=== PATIENT | female | born 1990 | race Caucasian/White ===

== ENCOUNTER 2017-01-12 20:47 | Outpatient (CLI) | payer OTHER ==
[~2017-01-12] VITALS: Ht 157.5 cm; Wt 85.0 kg
[2017-01-12 20:52] VITALS: BP 117/59
--- NOTE | 2017-01-12 22:10 | HPE ---
DATE OF ADMISSION: 01/12/2017 HISTORY: This lady is a 26-year-old 5, para 2, abortio 2, last menstrual period (LMP) 05/16/2016, estimated date of confinement (EDC) 02/20/2017, at 34 weeks and two days, who comes in with history of Darryl-Vilchis over the last 24 hours which as been irritating for her and she came for evaluation. PAST HISTORY: 1. In 2008, at 40-week spontaneous vaginal delivery female 7 pounds 11 ounces. 2. In 2011, a 40-week spontaneous vaginal delivery female 8 pounds. 3. She has had two spontaneous abortions, 2013 and 2015. Risk factor is she has anemia. Her labs are O positive, HIV negative, hepatitis negative, RPR negative. Varicella immune. Pap normal. Urine negative. Gonorrhea, chlamydia negative, 105 glucose. CF was declined. PHYSICAL EXAMINATION: On examination she does not appear in any acute distress. Has a category one strip. Accelerations 15 x 15. Contractions have spaced out and they have of resting tone which is normal and probably mild in intensity. PELVIC EXAMINATION: Cervix is posterior, closed. No vaginal bleeding or loss, high, not dilated. Presenting part is about -4. Urine is 1.000, pH is seven negative, negative, negative. Blood pressure is 117/59, respirations are 18, pulse is 90 and temperature 98.4. ASSESSMENT: In summary, we have a 34-weeker with benign [place]-Vilchis contractions. She was given precautions. She has to keep her appointment with Jailene Rae, and she was welcomed back if she has ruptured membranes, bleeding, contractions 5-7 minutes apart, lasting 20-40 seconds.
== END 2017-01-12 21:30 | disposition home or self-care (01) ==
LOC: M LDO 20:47
PROVIDERS: ATTEND Obstetrics & Gynecology
DX: O47.03 False labor before 37 completed weeks of gestation, third trimester (principal); Z3A.34 34 weeks gestation of pregnancy; O99.013 Anemia complicating pregnancy, third trimester; D64.9 Anemia, unspecified; O09.293 Supervision of pregnancy with other poor reproductive or obstetric history, third trimester

== ENCOUNTER → 2017-01-12 | Outpatient (CLI) | payer OTHER | END | disposition home or self-care (01) | LOC: CANPRECLI → M LDO 20:44 | PROVIDERS: ATTEND Obstetrics & Gynecology | DX: O47.03 False labor before 37 completed weeks of gestation, third trimester (principal); O99.013 Anemia complicating pregnancy, third trimester; D64.9 Anemia, unspecified; Z3A.34 34 weeks gestation of pregnancy; O09.293 Supervision of pregnancy with other poor reproductive or obstetric history, third trimester ==

== ENCOUNTER 2017-01-20 15:54 | Outpatient (CLI) | payer OTHER ==
[~2017-01-20] VITALS: Ht 157.5 cm; Wt 82.0 kg
[2017-01-20 16:04] VITALS: BP 121/69
[2017-01-20 17:05] VITALS: BP 109/53
== END 2017-01-20 17:57 | disposition home or self-care (01) ==
LOC: M LDO 15:54
PROVIDERS: ATTEND Obstetrics & Gynecology
DX: O36.8130 Decreased fetal movements, third trimester, not applicable or unspecified (principal); Z3A.35 35 weeks gestation of pregnancy

== ENCOUNTER 2017-02-22 10:17 | Outpatient (CLI) | payer OTHER ==
[~2017-02-22] VITALS: Ht 157.5 cm; Wt 82.0 kg
[2017-02-22 10:37] VITALS: BP 110/60
[2017-02-22] MEDS ORDERED: PEPSID (10:40)
== END 2017-02-22 11:28 | disposition home or self-care (01) ==
LOC: M LDO 10:17
PROVIDERS: ATTEND Student in an Organized Health Care Education/Training Program
DX: O47.1 False labor at or after 37 completed weeks of gestation (principal); Z3A.40 40 weeks gestation of pregnancy

== ENCOUNTER 2017-02-22 14:40 | Outpatient (CLI) | payer OTHER ==
[~2017-02-22] VITALS: Ht 157.5 cm; Wt 92.0 kg
[~2017-02-22 14:40] MED LIST: PEPSID
[2017-02-22 15:02] VITALS: BP 99/53
== END 2017-02-22 15:22 | disposition home or self-care (01) ==
LOC: M LDO 14:40
PROVIDERS: ATTEND Advanced Practice Midwife
DX: O47.1 False labor at or after 37 completed weeks of gestation (principal); Z3A.40 40 weeks gestation of pregnancy

== ENCOUNTER 2017-02-22 18:58 | Inpatient (IN) | payer OTHER ==
[~2017-02-22] VITALS: Ht 157.5 cm; Wt 86.0 kg
[2017-02-22] MEDS ORDERED: LACTATED RINGER'S 1000 ML IV STA (19:44)
[2017-02-22] MEDS ORDERED: LR 1,000 ML IV SCH (20:00)
[2017-02-22 20:26] LABS: MEAN CORPUSCULAR HEMOGLOBIN 29.1 pg (27.0-33.0); MEAN CORPUSCULAR HGB CONC 34.4 g/dl (32.0-36.5); MEAN CORPUSCULAR VOLUME 84.7 fl (80.0-96.0); WHITE BLOOD COUNT 20.5 K/mm3 (4.0-10.0)
[2017-02-22] MEDS ORDERED: FENTANYL 2MCG/ML ROPIVACAINE 0.2% IN 0.9% NACL 200ML IVBAG As Ordered ONE (20:50)
[2017-02-22] MEDS ORDERED: diphenhydrAMINE INJ 50MG/ML VIAL (J1200) IV PRN (22:08)
[2017-02-22] MEDS ORDERED: REFRIGERATOR IV KEYS XX PRN (22:08)
[2017-02-22] MEDS ORDERED: FENTANYL/ROPIVACAINE/NACL BAG 200 ML EPIDURAL SCH (22:08)
[2017-02-22] MEDS ORDERED: NALOXONE INJ 0.4 MG/1 ML VIAL (J2310) IV PRN (22:08)
[2017-02-22] MEDS ORDERED: EPIDURAL COMMENT XX SCH (22:08)
[2017-02-22] MEDS ORDERED: LACTATED RINGER'S 1000 ML IV PRN (22:08)
[2017-02-22] MEDS ORDERED: ONDANSETRON 4MG/2ML VIAL (J2405) IV PRN (22:08)
[2017-02-22] MEDS ORDERED: EPIDURAL/PCA KEYS XX PRN (22:08)
[2017-02-22] MEDS ORDERED: ePHEDrine SULFATE 25 MG/5 ML(5MG/ML) SYRINGE IV PRN (22:08)
[2017-02-22] MEDS ORDERED: OXYTOCIN 30 UNITS IN 0.9% NaCl 500ML IV BAG (J2590) As Ordered ONE (22:36)
[2017-02-23] MEDS ORDERED: OXYTOCIN DRIP 30 UNITS in APPROPRIATE DILUENT 1 EA IV SCH (03:36)
[2017-02-23] MEDS ORDERED: ANUSOL HC CREAM 30GM TOP PRN (03:45)
[2017-02-23] MEDS ORDERED: PROMETHAZINE 25 MG TAB PO PRN (03:45)
[2017-02-23] MEDS ORDERED: MEASLES,MUMPS,RUBELLA VACCINE INJ (MMR-II) (90707) SC SCH (03:45)
[2017-02-23] MEDS ORDERED: ACETAMINOPHEN 500 MG TAB PO PRN (03:45)
[2017-02-23] MEDS ORDERED: MOM 30ML SUSPENSION UDC PO PRN (03:45)
[2017-02-23] MEDS ORDERED: METHYLERGONOVINE MALEATE 0.2 MG TAB PO PRN (03:45)
[2017-02-23] MEDS ORDERED: LIDOCAINE 1% MDV INJ 50 ML VIAL INFIL ONE (03:45)
[2017-02-23] MEDS ORDERED: DIBUCAINE 1% OINTMENT 30GM TOP PRN (03:45)
[2017-02-23] MEDS ORDERED: DOCUSATE SODIUM 100 MG CAP PO PRN (03:45)
[2017-02-23] MEDS ORDERED: RHOGAM 300 MCG (1500 IU) INJ (J2790) IM SCH (03:45)
[2017-02-23] MEDS: IBUPROFEN 800 MG TAB PO PRN ×3 (04:35→22:18)
[2017-02-23 05:46] VITALS: BP 131/60
[2017-02-23] MEDS: PRENATAL VITAMINS CHEWABLE TABLET PO SCH (09:08)
[2017-02-23 18:30] VITALS: BP 131/62
[2017-02-24 05:35] VITALS: BP 141/74
--- NOTE | 2017-02-24 06:58 | DS.PDOC ---
Discharge Summary General Date of Admission Feb 22, 2017 at 19:40 Date of Discharge [id number] Discharge Summary PROCEDURES PERFORMED DURING STAY: spontaneous vaginal delivery ADMITTING DIAGNOSIS: 1. Active Labor DISCHARGE DIAGNOSES: 1. Healthy male HOSPITAL COURSE: Admitted for active labor and delivery. Uncomplicated, see delivery note. DISCHARGE MEDICATIONS: Motrin, Tylenol, Colace, Lanolin, Dibucaine, Depo- Provera for PP contraception Physical exam: see note from this morning LABORATORY DATA: Please see below. ACTIVITY: as tolerated. Nothing in vagina for 6 weeks. DIET: regular DISPOSITION:stable TIME SPENT ON DISCHARGE: Greater than 15 minutes. Sessions Vital Signs/I&Os Vital Signs Date Time Temp Pulse Resp B/P (MAP) Pulse Ox O2 Delivery O2 Flow Rate FiO2 02/24/17 05:35 97.2 67 18 141/74 (96) 02/23/17 18:30 98 Discharge Medications Miscellaneous Medications [Pepsid ] , (Reported) Allergies Coded Allergies: No Known Allergies (Unverified , 01/12/17) SESSIONS,FERNANDO Krishnamurthy MD Feb 24, 2017 06:58
--- NOTE | 2017-02-24 07:00 | IPNPDOC ---
Text Note Date of Service The patient was seen on 02/24/17. NOTE PPD1 prog note States feeling well, no complaints. No heavy VB. Pain controlled. Voiding, ambulatory. Bonding well and breast feeding well. VSSAF CTAB RRR Ut at U-2, firm Ext no CCE a/p: Doing well. d/c this morning. To bonding if baby not released. Sessions VS,Mehnaz, I+O VSMehnaz, I+O Vital Signs Date Time Temp Pulse Resp B/P (MAP) Pulse Ox O2 Delivery O2 Flow Rate FiO2 02/24/17 05:35 97.2 67 18 141/74 (96) 02/23/17 18:30 98 SESSIONS,FERNANDO Krishnamurthy MD Feb 24, 2017 07:00
[2017-02-24] MEDS ORDERED: medroxyPROGESTERone ACET IM SUSP 150 MG/ML VIAL (J1050) IM ONE (07:15)
[2017-02-24] MEDS: PRENATAL VITAMINS CHEWABLE TABLET PO SCH (10:38)
--- NOTE | 2017-02-24 13:22 | IPN ---
DATE: 02/24/2017 This patient has requested circumcision of their male infant. After discussing risks and benefits of circumcision, the medical and nonmedical indications, penile block and aftercare, all questions were answered, expressed understanding of the penile block and aftercare, signed and witnessed consent form. We await clearance by the senior front end web developer.
[2017-02-24] MEDS ORDERED: ACET50TA PO (16:52)
[2017-02-24] MEDS ORDERED: PRENTAB9 PO (16:52)
[2017-02-24] MEDS ORDERED: COLA100C5 PO (16:52)
[2017-02-24] MEDS ORDERED: IBUP-1114 PO (16:52)
[2017-02-24] MEDS ORDERED: NUPE1OIN2 TOP (16:52)
== END 2017-02-24 18:30 | disposition home or self-care (01) | DRG 775 ==
LOC: M LDO 18:58 → M LDI 19:40 → M OBS 02-23 05:33
PROVIDERS: ADMIT Student in an Organized Health Care Education/Training Program; ATTEND Student in an Organized Health Care Education/Training Program
PROC: 10E0XZZ Delivery of Products of Conception, External Approach (ICD-10-PCS; principal; 2017-02-23)
PROC: 10907ZC Drainage of Amniotic Fluid, Therapeutic from Products of Conception, Via Natural or Artificial Opening (ICD-10-PCS; 2017-02-23)
PROC: 0HQ9XZZ Repair Perineum Skin, External Approach (ICD-10-PCS; 2017-02-23)
DX: O48.0 Post-term pregnancy (principal); Z37.0 Single live birth; Z3A.40 40 weeks gestation of pregnancy; O70.0 First degree perineal laceration during delivery

== ENCOUNTER 2017-03-26 17:20 | Emergency (ER) | payer OTHER ==
[~2017-03-26] VITALS: Ht 160 cm; Wt 75.1 kg
[~2017-03-26 17:20] MED LIST changes: +ACET50TA PO; +COLA100C5 PO; +IBUP-1114 PO; +NUPE1OIN2 TOP; +PRENTAB9 PO
[2017-03-26] MEDS ORDERED: KETOROLAC 30 MG/ML VIAL (J1885) IV ONE (19:30)
[2017-03-26 19:54] LABS: BASO % 0.5 % (0.0-1.0); EOS # 0.2 K/mm3 (0.0-0.50); LARGE UNSTAINED CELL # 0.1 K/mm3 (0.0-0.4); LARGE UNSTAINED CELL % 1.4 % (0.0-4.0); LYMPH # 2.9 K/mm3 (1.5-6.5); LYMPH % 26.6 % (24.0-44.0); MEAN CORPUSCULAR HEMOGLOBIN 28.6 pg (27.0-33.0); MEAN CORPUSCULAR HGB CONC 32.9 g/dl (32.0-36.5); MEAN CORPUSCULAR VOLUME 86.8 fl (80.0-96.0); MONO # 0.4 K/mm3 (0.0-0.8); MONO % 3.8 % (0.0-5.0); NEUTROPHILS # 6.8 K/mm3 (1.8-7.7); NEUTROPHILS % 65.7 % (36.0-66.0); PLATELET COUNT, AUTOMATED 256 k/mm3 (150-450); RED CELL DISTRIBUTION WIDTH 14.4 % (11.5-14.5); WHITE BLOOD COUNT 10.4 K/mm3 (4.0-10.0)
[2017-03-26 19:54] LABS: MICROSCOPIC INDICATED? MAN YES (NO)
[2017-03-26] MEDS ORDERED: GASTROGRAFIN SOLUTION 30ML (Q9963) PO ONE ×2 (20:00→20:30)
[2017-03-26 20:10] LABS: MICROSCOPIC EXAM PERFORMED
[2017-03-26 20:12] LABS: WBC, URINE 0-1 /hpf (0-3)
[2017-03-26 20:15] LABS: ALBUMIN 3.7 GM/DL (3.2-5.2); ALBUMIN/GLOBULIN RATIO 1.03 (1.00-1.93); ALKALINE PHOSPHATASE 125 U/L (45-117); ALT/SGPT 24 U/L (12-78); AMYLASE 40 U/L (25-115); ANION GAP 9 MEQ/L (8-16); AST/SGOT 11 U/L (15-37); BILIRUBIN,DIRECT < 0.1 MG/DL (0.0-0.2); BILIRUBIN,TOTAL 0.2 MG/DL (0.2-1.0); BLOOD UREA NITROGEN 17 MG/DL (7-18); CALCIUM LEVEL 8.4 MG/DL (8.5-10.1); CARBON DIOXIDE LEVEL 22 MEQ/L (21-32); CHLORIDE LEVEL 111 MEQ/L (98-107); CREATININE FOR GFR 0.96 MG/DL (0.55-1.02); GLOMERULAR FILTRATION RATE > 60.0 (>60); GLUCOSE, FASTING 85 MG/DL (70-105); POTASSIUM SERUM 3.6 MEQ/L (3.5-5.1); SODIUM LEVEL 142 MEQ/L (136-145); TOTAL PROTEIN 7.3 GM/DL (6.4-8.2)
[2017-03-26 20:16] LABS: BACTERIA, URINE NONE SEEN; HYALINE CAST, URINE NONE SEEN /lpf (0-1); RBC, URINE NONE SEEN /hpf (0-3); SQUAMOUS EPITHELIAL CELL URINE SMALL AMOUNT /hpf (SMALL AMT)
[2017-03-26] MEDS ORDERED: ISOVUE-370 76% 100ML VIAL (Q9967) As Ordered ONE (21:52)
[2017-03-26] MEDS ORDERED: AUGMENTIN 875 MG TAB As Ordered ONE (23:16)
--- NOTE | 2017-03-26 23:50 | REPUSA ---
CLINICAL HISTORY: RLQ pain. TECHNIQUE: Multiple axial, coronal, sagittal CT images were obtained through the abdomen and pelvis after administration of oral and intravenous contrast material. COMMENTS: There is an 8 mm hypodense lesion noted in the right hepatic lobe most compatible with small hemangio ma. The spleen is normal. The gallbladder is within normal limits. The pancreas is of normal conto ur and attenuation characteristics. There is no evidence of adrenal mass. Both kidneys demonstrate prompt and equal nephrograms. The kidneys are normal in size, shape and con figuration. There is no evidence of renal or ureteral mass. No renal or ureteral calculi are identi fied. There is no hydroureter or hydronephrosis. No evidence for appendicitis. There is evidence of circumferential wall thickening involving the duo denum and jejunum compatible with enteritis. Infectious and inflammatory etiologies are consider. C onsider consultation with GI service. No evidence for small or large bowel obstruction. There is no evidence of abdominal ascites or lymphadenopathy. There is a broad based ventral abdominal hernia containing fat only. The uterus appears somewhat bulky with fluid filling the endometrial canal measuring up to 2.5 cm is seen. Consider correlation with pelvic ultrasound. The ovaries are grossly unremarkable. There is no evidence of intrinsic or extrinsic bladder mass. There is no pelvic ascites or lymphaden opathy. Images of the lung bases show no evidence of pleural or parenchymal mass. There are no pleural effus ions. The bony structures are free of lytic or blastic lesions. IMPRESSION: 1. 8 mm hypodense lesion noted in the right hepatic lobe most compatible with small hemangioma. 2. Evidence of circumferential wall thickening involving the duodenum and jejunum compatible with en teritis. Infectious and inflammatory etiologies are consider. Consider consultation with GI service . 3. Broad based ventral abdominal hernia containing fat only. 4. The uterus appears somewhat bulky with fluid filling the endometrial canal measuring up to 2.5 cm is seen. Consider correlation with pelvic ultrasound.
[2017-03-27] MEDS ORDERED: NORCOTAB PO (00:08)
[2017-03-27] MEDS ORDERED: REGL10TA6 PO (00:08)
[2017-03-27] MEDS ORDERED: AUGM875T28 PO (00:08)
[2017-03-27 00:14] VITALS: BP 130/69
[2017-03-27] MEDS ORDERED: NORCO, ANEXSIA 5/325MG TABLET (HYDROcodone/ACETAMINOPHEN) PO ONE (00:15)
[2017-03-27] MEDS ORDERED: AUGMENTIN 875 MG TAB PO ONE (00:15)
--- NOTE | 2017-03-27 08:47 | ED PDOC ---
Post-Departure Follow-Up radiology report faxed to [facility] Kellee Yang MD Mar 27, 2017 08:47
== END 2017-03-27 00:23 | disposition home or self-care (01) ==
LOC: M ED 17:20
DX: K52.9 Noninfective gastroenteritis and colitis, unspecified (principal); R10.32 Left lower quadrant pain
CPT/HCPCS: 74177; 80048; 80076; 81000; 81025; 82150; 83690; 85025; 86140; 96374; 99284; J1885; Q9963; Q9967

== ENCOUNTER 2017-10-29 09:45 | Emergency (ER) | payer OTHER | END 2017-10-29 10:52 | disposition home or self-care (01) | LOC: M ED 09:45 | DX: T33.832A Superficial frostbite of left toe(s), initial encounter (principal); Y92.017 Garden or yard in single-family (private) house as the place of occurrence of the external cause | CPT/HCPCS: 99282 ==